=== PATIENT | female | born 1975 | race Caucasian/White ===

== ENCOUNTER → 2021-07-24 09:49 | Outpatient (CLI) | payer OTHER, SELFPAY ==
--- NOTE | ~2021-07-24 | XR_ITS ---
EXAMINATION: XR chest 2V DATE: 07/24/2021 10:02 INDICATION: Cough, unspecified. TECHNIQUE: Frontal and lateral views of the chest were obtained. COMPARISON: None. FINDINGS: The chest demonstrates clear lungs without pneumonia, pleural effusion, or pneumothorax. Th e heart size is normal. There are surgical clips in the abdomen. IMPRESSION: 1. No acute cardiopulmonary disease. Reviewed, dictated and finalized at location B.
== END ==
PROVIDERS: PCP Family Medicine; Visit Provider Nurse Practitioner Gerontology
DX: R05.9 Cough, unspecified (principal)
CPT/HCPCS: 71046

== ENCOUNTER 2022-06-15 01:33 | Day surgery (SDC) | payer OTHER, SELFPAY ==
[2022-06-01 09:02] VITALS: BMI 46.2
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
[2022-06-15 07:45] VITALS: BP 139/86; PULSE 86; RESP 16; TEMP 36.2; O2SAT 100
[2022-06-15] MEDS: LACTATED RINGERS 1,000 ML 150 ML IV CONT (07:59)
[2022-06-15 08:00] LABS: Glucose Point of Care 129 mg/dl (65-105)
[2022-06-15 08:47] VITALS: BP 121/78; PULSE 92; RESP 18; O2SAT 98
[2022-06-15 08:57] VITALS: BP 147/84; PULSE 80; RESP 18; O2SAT 100
[2022-06-15 09:07] VITALS: BP 136/86; PULSE 79; RESP 18; O2SAT 100
== END 2022-06-15 09:23 | disposition home or self-care (01) ==
PROVIDERS: PCP Family Medicine; Visit Provider Internal Medicine Gastroenterology
PROC: 0DJD8ZZ Inspection of Lower Intestinal Tract, Via Natural or Artificial Opening Endoscopic (ICD-10-PCS; CPT 45378; principal; 2022-06-15 08:30)
DX: Z12.11 Encounter for screening for malignant neoplasm of colon (principal); I10 Essential (primary) hypertension; E11.9 Type 2 diabetes mellitus without complications; F41.1 Generalized anxiety disorder; F32.A Depression, unspecified; E66.01 Morbid (severe) obesity due to excess calories; Z68.42 Body mass index [BMI] 45.0-49.9, adult; F17.210 Nicotine dependence, cigarettes, uncomplicated; Z79.899 Other long term (current) drug therapy
CPT/HCPCS: 45378; 82948; J2704; J7120

== ENCOUNTER 2023-12-04 15:55 | Outpatient (CLI) | payer OTHER, SELFPAY ==
--- NOTE | ~2023-12-04 | US_ITS ---
EXAMINATION: US venous doppler LE RT DATE: 12/04/2023 16:55 INDICATION: Right lower limb pain, swelling and erythema TECHNIQUE: Grayscale ultrasound images without and with compression and Doppler ultrasound images of the right lower extremity veins were obtained. COMPARISON: None. FINDINGS: The visualized portions of right common femoral vein, profunda (deep) femoral vein, femoral vein, pop liteal vein, peroneal trunk, posterior tibial veins, peroneal veins, gastrocnemius vein and greater s aphenous vein outflow are patent. IMPRESSION: 1. No deep venous thrombosis in the right lower limb. Reviewed, dictated and finalized at location B.
== END 2023-12-04 15:56 | disposition home or self-care (01) ==
LOC: ANHIMG 15:59
PROVIDERS: PCP Family Medicine; Visit Provider Physician Assistant
DX: M79.606 Pain in leg, unspecified (principal); M79.89 Other specified soft tissue disorders
CPT/HCPCS: 93971